=== PATIENT | female | born 1965 | race Caucasian/White ===

== ENCOUNTER 2023-11-02 16:13 | Emergency (ER) | payer MEDICAID ==
[~2023-11-02] VITALS: Ht 160 cm; Wt 59.1 kg
[2023-11-02 16:34] VITALS: BP 144/90; PULSE 93; RESP 14; TEMP 98.9; O2SAT 98
== END 2023-11-02 22:45 | disposition left against medical advice (07) ==
LOC: ER 16:14
DX: R51.9 Headache, unspecified (principal); Z53.21 Procedure and treatment not carried out due to patient leaving prior to being seen by health care provider
CPT/HCPCS: 82948; 99281

== ENCOUNTER 2024-09-07 08:43 | Emergency (ER) | payer MEDICAID ==
[~2024-09-07] VITALS: Ht 160 cm; Wt 48.3 kg
[2024-09-07 09:25] LABS: BASOPHILS % (AUTO) 0.2 % (0-1); EOSINOPHILS % (AUTO) 0.1 % (0-6); HEMATOCRIT 45.4 % (35.0-45.0); HEMOGLOBIN 15.9 g/dl (12.0-16.0); LYMPHOCYTES # (AUTO) 1.2 X10'3 (1.1-4.8); LYMPHOCYTES % (AUTO) 21.5 % (21-51); MEAN CORPUSCULAR HEMOGLOBIN 31.8 PG (27.0-31.0); MEAN CORPUSCULAR HGB CONC 35.1 g/dL (33.0-36.5); MEAN CORPUSCULAR VOLUME 90.6 FL (78-98); MEAN PLATELET VOLUME 8.2 FL (7.4-10.4); MONOCYTES # (AUTO) 0.5 X10'3 (0-0.9); MONOCYTES % (AUTO) 9.3 % (2-12); NEUTROPHILS % (AUTO) 68.9 % (42-75); PLATELET COUNT 136 X10'3 (140-440); WHITE BLOOD COUNT 5.8 X10'3 (4.5-11.0)
[2024-09-07 09:47] LABS: ALANINE AMINOTRANSFERASE 41 U/L (12-78); ALBUMIN 3.7 G/DL (3.4-5.0); ALBUMIN/GLOBULIN RATIO 1.1 (1.1-1.5); ALKALINE PHOSPHATASE 67 IU/L (46-116); ANION GAP 15 (8-16); ASPARTATE AMINO TRANSFERASE 45 U/L (10-37); BILIRUBIN,TOTAL 0.6 MG/DL (0.1-1.0); BLOOD UREA NITROGEN 11 MG/DL (7-18); BUN/CREATININE RATIO 15.7 (10.0-20.0); CALCIUM 9.4 MG/DL (8.5-10.1); CHLORIDE 92 MMOL/L (99-107); GLUCOSE 84 MG/DL (70-104); POTASSIUM 3.2 MMOL/L (3.5-5.1); SODIUM 130 MMOL/L (135-145); eCRCL 66 ML/MIN; eGFR 86 ML/MIN
[2024-09-07 09:56] LABS: PRO BRAIN NATRIURETIC PEPTIDE 36 PG/ML (0-125)
[2024-09-07] MEDS: normal saline 1000ML IV soln IVB ONE (10:21)
[2024-09-07 11:00] VITALS: BP 113/75
[2024-09-07 11:32] LABS: BILIRUBIN,URINE NEGATIVE (Neg); CLARITY,URINE CLEAR (Clear); COLOR,URINE YELLOW (Yellow); GLUCOSE, URINE 500 mg/dl (Neg); KETONES,URINE TRACE mg/dl (Neg); LEUKOCYTE ESTERASE ,URINE NEGATIVE (Neg); NITRITES, URINE NEGATIVE (Neg); OCCULT BLOOD,URINE NEGATIVE (Neg); PROTEIN,URINE NEGATIVE (Neg); UROBILINOGEN,URINE 0.2 E.U/dL (0.2-1.0)
[2024-09-07 11:35] LABS: UA COLLECTION TYPE VOIDED
[2024-09-07] MEDS ORDERED: ALBU18HF2 INH (11:52)
[2024-09-07] MEDS: dexamethasone sod phosphate 10mg/ml inj PO STA (12:06)
[2024-09-07] MEDS: potassium Cl 20 mEq SR tablet PO STA (12:06)
[2024-09-07 12:10] VITALS: PULSE 91; RESP 14; TEMP 97.8; O2SAT 100
== END 2024-09-07 12:07 | disposition home or self-care (01) ==
LOC: ER 08:43
DX: R91.8 Other nonspecific abnormal finding of lung field (principal); E11.9 Type 2 diabetes mellitus without complications; E87.6 Hypokalemia; J40 Bronchitis, not specified as acute or chronic; F17.210 Nicotine dependence, cigarettes, uncomplicated
CPT/HCPCS: 36415; 71045; 80053; 81003; 83880; 84484; 85025; 93005; 96360; 99285; J1100; J7030

== ENCOUNTER 2025-04-21 21:39 | Emergency (ER) | payer MEDICAID ==
[~2025-04-21] VITALS: Ht 157.5 cm; Wt 50.9 kg
[~2025-04-21 21:39] MED LIST: ALBU18HF2 INH; AMOX-101 PO
[2025-04-21 21:43] VITALS: BP 160/96; PULSE 69; O2SAT 98
[2025-04-21] MEDS: normal saline 1000ML IV soln IVB ONE (22:12)
[2025-04-21] MEDS: metoclopramide 5 mg/ml inj IV ONE (22:15)
[2025-04-21] MEDS: ketorolac trometh 15mg/ml vial 15 MG/ML ML IV ONE (22:15)
--- NOTE | 2025-04-21 22:29 | Physician Documentation ---
History of Present Illness ~ Chief Complaint: Headache Stated Complaint: MIGRAINE Time Seen by MD: 21:55 Primary Medical Doctor: SULAIMAN MEYERS HPI 59-year-old female presents to the emergency department with a complaint of headache and the scapular plane that radiates down her left upper extremity. She is grossly neurologically intact without focal neuro deficits. Reports chronic history headache and has been unable to break this headache. It is non thunderclap there is mild nausea without or or visual difficulties. Fast exam is negative. She is while alert with a steady gait. No recent illness injuries, travels or known ill contacts. Medication Reconciliation Allergies: Coded Allergies: No Known Allergies (Unverified , 09/07/24) Scheduled Amoxicillin Trihydrate (Amoxicillin), 2 CAP PO BID Tizanidine Hcl (Zanaflex), 1 TAB PO Q8H Scheduled PRN Albuterol Sulfate (Ventolin Hfa), 2 PUFFS INH Q4HPRN PRN for SOB or wheezing Past Medical History Past Medical History: Diabetes Past Surgical History: no surgical history Drug Use: none Lives In: Home Review of Systems All Other Systems at this time: Reviewed and Negative Neurological: Reports: see HPI, headache; Denies: speech problem, dizziness, fainting, left sided numbness, right sided numbness, left sided weakness, right sided weakness Physical Exam Vital Signs: Temperature: 97.0, Source: Temporal, Heart Rate: 69, Respiratory Rate: 14, BP: 160/96, Pulse Oximetry: 98, Weight: 50.910 Oxygen Flow Rate: 0 General Appearance: alert, WD/WN, moderate distress ENT: normal ENT inspection Nose: normal inspection Oropharynx: normal inspection Head: normal inspection Neck: non-tender Respiratory: lungs clear Chest: no accessory muscle use Cardiovascular: normal peripheral pulses Extremities: normal inspection Extremities Tenderness to palpation to the left trapezium Skin: warm/dry Neurologic: oriented x4, portrait consultant II-XII nml as tested, memory intact, oriented to time, oriented to person, oriented to place, oriented to events Motor / Sensory: no motor deficit, no sensory deficit Cerebellar function exam: normal Psychiatric: normal mood/affect Progress Results/Orders Results/Orders Completed Orders - RIK ESTEVEZ PAC Normal Saline 1000ml (0.9% Sodium Chlori (04/21/25 21:55) Metoclopramide Inj (Reglan Inj) (04/21/25 21:55) Diphenhydramine Inj (Benadryl Inj.) (04/21/25 21:55) Ketorolac Trometh 15mg/Ml Vial (Toradol (04/21/25 21:55) Medications Received in ER Medications (Trade) Dose Ordered Sig/Alix Route PRN Reason Start Time Stop Time Status Last Admin Dose Admin (0.9% sodium chloride (NS) 1000ml IV soln) 1,000 ml ONCE ONCE IVB 04/21/25 21:55 04/21/25 21:57 DC 04/21/25 22:12 1,000 ML (Reglan inj) 10 mg ONCE ONCE IV 04/21/25 21:55 04/21/25 21:57 DC 04/21/25 22:15 10 MG (Benadryl inj.) 50 mg ONCE ONCE IV 04/21/25 21:55 04/21/25 21:57 DC 04/21/25 22:15 50 MG (Toradol injection) 15 mg ONCE ONCE IV 04/21/25 21:55 04/21/25 21:57 DC 04/21/25 22:15 15 MG Vital Signs 04/21/25 21:43 Temp 97.0 Pulse 69 Resp 14 B/P (MAP) 160/96 Pulse Ox 98 O2 Flow Rate 0 Medical Decision Making Additional Comment Examination & history consistent with acute headache exacerbation requiring IV fluids, Reglan, Benadryl and Toradol. Patient pending reassessment. She remains well alert and oriented grossly neurologically intact. Sleeping at next assessment. At discharge we will have a shared decision making regarding the need for anti spasmodic due to likely trigger point in the left scapula the trigger in the headache in left upper extremity pain. Departure Disposition: HOME / SELF CARE / HOMELESS Impression: Primary Impression: Headache Qualified Codes: R51.9 - Headache, unspecified; G89.29 - Other chronic pain Condition: Stable Discharge Instructions: Headache Additional Instructions: Today in the emergency department you received management to manage your current headache. I suspected trigger of your headache is originating from muscle spasm unless scapula. Please begin muscle relaxant as directed and continue with your other medications. Make follow up appointment with the Primary Care Physician and return to the emergency department as needed. Thank you for visiting [facility]. Referrals: NO PRIMARY CARE PROVIDER (PCP) Prescriptions Tizanidine Hcl (ZANAFLEX) 4 Mg Tablet 1 TAB PO Q8H for pain for 10 Days, #30 TAB 0 Refills Prov: RIK ESTEVEZ PAC 04/21/25 Education Educated: Patient Educated regarding: diagnosis, treatment Signature Scribe Signature: . Attestation: . RIK ESTEVEZ PAC Apr 21, 2025 22:29
[2025-04-21] MEDS ORDERED: TIZA4TAB11 PO (22:37)
[2025-04-21 23:39] VITALS: TEMP 97
[2025-04-21 23:57] VITALS: RESP 16
[2025-04-22] MEDS ORDERED: TIZA4TAB11 PO (11:32)
== END 2025-04-22 00:49 | disposition home or self-care (01) ==
LOC: ER 21:40
DX: R51.9 Headache, unspecified (principal); E11.9 Type 2 diabetes mellitus without complications
CPT/HCPCS: 96361; 96374; 96375; 99284; J1200; J1885; J2765; J7030

== ENCOUNTER 2025-04-22 11:22 | Emergency (ER) | payer MEDICAID ==
[~2025-04-22] VITALS: Ht 157.5 cm; Wt 52.3 kg
[~2025-04-22 11:22] MED LIST changes: +TIZA4TAB11 PO
[2025-04-22 11:26] VITALS: BP 150/95; PULSE 100; RESP 16; TEMP 98; O2SAT 98
[2025-04-22] MEDS ORDERED: TIZA4TAB11 PO (11:32)
--- NOTE | 2025-04-22 17:45 | Physician Documentation ---
HPI ~ General Chief Complaint: Medication Request Stated Complaint: MED REQUEST Time Seen by MD: 11:32 Primary Medical Doctor: SULAIMAN MEYERS History of Present Illness HPI Comments 59-year-old female presents to the ED requesting to have her medications sent to a different pharmacy after her last visit was sent to the wrong one. Denies any other medical complaint Without Medications Since: Apr 22, 2025 Medication Reconciliation Allergies: Coded Allergies: No Known Allergies (Unverified , 09/07/24) Scheduled Amoxicillin Trihydrate (Amoxicillin), 2 CAP PO BID Tizanidine Hcl (Zanaflex), 1 TAB PO Q8H Scheduled PRN Albuterol Sulfate (Ventolin Hfa), 2 PUFFS INH Q4HPRN PRN for SOB or wheezing Past Medical History Past Medical History: Diabetes Past Surgical History: no surgical history Smoking Status: Current every day smoker Drug Use: none Lives In: Home Review of Systems All Other Systems at this time: Reviewed and Negative ROS As stated above in the HPI, otherwise all systems are reviewed and negative. Physical Exam Physical Exam Vital Signs: Temperature: 98.0, Source: Oral, Heart Rate: 100, Respiratory Rate: 16, BP: 150/95, Pulse Oximetry: 98, Weight: 52.270 Oxygen Flow Rate: 0 Physical Exam General: Alert, no apparent distress. HEENT: PERRL, EOMI, no injection, moist mucous membranes. Neck: Full range of motion. Respiratory: Lungs clear, no respiratory distress. Chest: No accessory muscle use. Cardiovascular: Regular rate and rhythm, no murmurs. Gastrointestinal: Soft, nontender, nondistended. Bowels sounds present. Extremities: Normal range of motion, no deformity. Neurologic: Oriented x4. Psychiatric: Normal mood and affect. Skin: Normal color, warm and dry. No edema, no ecchymosis. Progress Results/Orders Results/Orders Vital Signs 04/22/25 11:26 Temp 98.0 Pulse 100 Resp 16 B/P (MAP) 150/95 Pulse Ox 98 O2 Flow Rate 0 Medical Decision Making Findings Med sent to the appropriate pharmacy for the patient Departure Disposition: HOME / SELF CARE / HOMELESS Impression: Primary Impression: General medical exam Condition: Stable Discharge Instructions: Medicine Refill at the Emergency Department Referrals: NO PRIMARY CARE PROVIDER (PCP) Prescriptions Tizanidine Hcl (ZANAFLEX) 4 Mg Tablet 1 TAB PO Q8H for pain for 10 Days, #30 TAB 0 Refills Prov: DOROTA DOWELL NP 04/22/25 Signature Scribe Signature: na Attestation: DOROTA Chaudhry NP Apr 22, 2025 17:45 YESSI TOUSSAINT MD Apr 23, 2025 10:09
== END 2025-04-22 12:29 | disposition home or self-care (01) ==
LOC: ER 11:22
DX: Z00.00 Encounter for general adult medical examination without abnormal findings (principal); E11.9 Type 2 diabetes mellitus without complications; F17.200 Nicotine dependence, unspecified, uncomplicated
CPT/HCPCS: 99281; 99282; 99283

== ENCOUNTER 2025-04-26 09:15 | Emergency (ER) | payer MEDICAID ==
[~2025-04-26] VITALS: Ht 160 cm; Wt 52.3 kg
[2025-04-26 09:19] VITALS: BP 125/79; PULSE 70; O2SAT 99
--- NOTE | 2025-04-26 09:47 | Physician Documentation ---
History of Present Illness ~ General Chief Complaint: Cold, cough & congestion Stated Complaint: BODY PAINS Time Seen by MD: 09:31 OK to notify your PCP?: Yes Primary Medical Doctor: SULAIMAN MEYERS Source: patient Mode of Arrival: POV Exam Limitations: no limitations History of Present Illness Initial Comments This is a 59-year-old female who comes in stating that is she has been feeling depressed as of late. She says she has lost interest in activities of daily living. She states that she feels tired all the time. She denies any new come acute or worsening symptoms and she was recently here for cervical radiculopathy for which she was treated with a muscle relaxants. She has a history of diabetes she states she monitors his sugar closely and watches her diet. Currently aside from the arm pain she has no acute complaints. Medication Reconciliation Allergies: Coded Allergies: No Known Allergies (Unverified , 04/26/25) Scheduled Tizanidine Hcl (Zanaflex), 1 TAB PO Q8H Scheduled PRN Albuterol Sulfate (Ventolin Hfa), 2 PUFFS INH Q4HPRN PRN for SOB or wheezing Discontinued Medications Amoxicillin Trihydrate (Amoxicillin), 2 CAP PO BID Discontinued Reason: Auto Discontinued Past Medical History Past Medical History: Diabetes Past Surgical History: no surgical history Drug Use: none Lives In: Home Physical Exam Physical Exam Vital Signs: Temperature: 97.6, Source: Oral, Heart Rate: 70, Respiratory Rate: 18, BP: 125/79, Pulse Oximetry: 99, Weight: 52.300 Oxygen Flow Rate: 0 Pulse Oximetry Reflects: adequate oxygenation General Appearance: alert, WD/WN, no apparent distress Respiratory: no respiratory distress Neurologic: oriented x4, concierge II-XII nml as tested, memory intact, oriented to time, oriented to person, oriented to place, oriented to events Motor / Sensory: no motor deficit Psychiatric: depressed affect Skin: normal color, warm/dry Progress Results/Orders Results/Orders Vital Signs 04/26/25 04/26/25 04/26/25 09:19 10:00 10:11 Temp 97.6 97.6 Pulse 70 Resp 18 16 B/P (MAP) 125/79 Pulse Ox 99 O2 Flow Rate 0 Medical Decision Making Findings Medical decision making: It is went with the patient at length and at the end of the conversation we decided not to perform any imaging or workup since we do not believe there would be of any benefit. The patient's sounds like she is suffering from depression. She says she has been to her primary care physician in his had multiple workups for different issues we will of which were negative. I gave the patient Toradol 30 mg IM for a cervical radiculopathy. I told her typical put on steroids however she is diabetic so we are going to hold off on that. She has not no focal neuro deficits. She is going to follow up with the primary care physician requested a referral to Mental Health. She denies thoughts of harming herself or others and in general is well-appearing. Differential Diagnosis Depression. Hypothyroid. Cervical radiculopathy. Departure Disposition: HOME / SELF CARE / HOMELESS Impression: Primary Impression: Depression Condition: Stable Discharge Instructions: Depression Screening Additional Instructions: Follow up with the primary care physician and discuss referral to Mental Health. Return to the ER for any worsening or concerning symptoms. Referrals: NO PRIMARY CARE PROVIDER (PCP) Signature Scribe Signature: No scribe Attestation: The note accurately reflects work and decisions made by me.Jen MEYERS 04/26/25 09:47 JEN RUSSELL Apr 26, 2025 09:47 FARRAH ROTH MD Apr 27, 2025 07:36
[2025-04-26 10:00] VITALS: RESP 16
[2025-04-26] MEDS: ketorolac trometh 15mg/ml vial 15 MG/ML ML IM ONE (10:00)
[2025-04-26 10:11] VITALS: TEMP 97.6
== END 2025-04-26 10:12 | disposition home or self-care (01) ==
LOC: ER 09:16
DX: F32.A Depression, unspecified (principal); E11.9 Type 2 diabetes mellitus without complications; Z79.899 Other long term (current) drug therapy
CPT/HCPCS: 96372; 99283; J1885